=== PATIENT | female | born 1955 | race Caucasian/White ===

== ENCOUNTER → 2021-05-06 | Outpatient (CLI) | payer MEDICARE, OTHER | LOC: MC.RAD 13:29 | DX: Z12.31 Encounter for screening mammogram for malignant neoplasm of breast (principal) ==

== ENCOUNTER → 2021-08-25 | Outpatient (CLI) | payer MEDICARE, OTHER | LOC: COL.RAD 11:57 | DX: M19.071 Primary osteoarthritis, right ankle and foot (principal) ==